=== PATIENT | female | born 1950 | race Two or more races ===

== ENCOUNTER 2024-10-01 12:23 | Emergency (ER) | payer OTHER, BC, SELFPAY ==
[2024-10-01 12:29] VITALS: BP 192/83; PULSE 100; RESP 18; TEMP 36.9; O2SAT 98; BMI 29.7
--- NOTE | 2024-10-01 12:44 | PD.EDRME ---
Rapid Medical Screening Exam [facility] Arrival date/time: 10/01/24 12:23 74-year-old female with history of cataract surgery in 2013 presents to the emergency department today for complaints of inability to see out of the right eye x 2 days Chief Complaint: Eye Problems Vital signs: Vital Signs Temperature 98.5 F 10/01/24 12:29 Pulse Rate 100 10/01/24 12:29 Respiratory Rate 18 10/01/24 12:29 Blood Pressure 192/83 H 10/01/24 12:29 Pulse Oximetry (%) 98 10/01/24 12:29 Oxygen Delivery Method Room Air 10/01/24 12:29
--- NOTE | 2024-10-01 12:51 | PC.NURSE ---
pt refused treatment. pt stated she was leaving to another hospital that had an advertising specialist.
== END 2024-10-01 15:41 | disposition left against medical advice (07) ==
PROVIDERS: Emergency Provider Emergency Medicine
DX: H53.8 Other visual disturbances (principal); Z53.29 Procedure and treatment not carried out because of patient's decision for other reasons
CPT/HCPCS: 80053; 85025; 99283